=== PATIENT | male | born 1985 | race Caucasian/White ===

== ENCOUNTER → 2019-10-09 | Outpatient (CLI) | payer OTHER ==
[~2019-10-09] MED LIST: ALBUTEROL SULFATE 0.083% NEB 2.5 MG/3 ML AMPUL NEB ONE
--- NOTE | 2019-10-09 15:38 | Pulmonary Function Test ---
Pulmonary Function Test Date of Procedure:: 10/09/19 - Received 10/09/2019 INDICATION:: Dyspnea Referring Provider: Dr. Deal [employer] Machine Operator: Yenny Snell EMBOSSING UNIT OPERATOR - Report Spirometry: Spirometry: pre-FVC: 5.65 L 99% post-FVC: 5.79 L 101% pre-FEV:1 4.23 L 90% post-FEV1: 4.67 L 99% pre-FEV1/FVC %: 75 post-FEV1/FVC%: 81 predicted: 83 [id number]%: 3.42 L 69% [id number]%: 4.68 L 95% Impression: Mild obstructive ventilatory defect most evident in the decreased flow of the FEF 25-75%. Good response to bronchodilator therapy.
== END ==
LOC: RT 07:43
PROVIDERS: ATTEND Internal Medicine
DX: R06.02 Shortness of breath (principal); Z87.891 Personal history of nicotine dependence
CPT/HCPCS: 94060

== ENCOUNTER 2019-10-10 06:47 | Emergency (ER) | payer OTHER ==
[2019-10-10] MEDS ORDERED: OXYCODONE-ACETAMINOPHEN 5-325 MG TABLET PO ONE (06:53)
[2019-10-10 06:54] VITALS: BP 143/86
--- NOTE | 2019-10-10 06:55 | ER Document Report ---
ED General - General Chief Complaint: Foot Injury Stated Complaint: RIGHT FOOT INJURY Time Seen by Provider: 10/10/19 06:53 Notes: 34-year-old male presents with right foot injury after getting up to walk, severe searing lateral foot pain with swelling. He is concerned for fracture dislocation. Will bear weight. No fever no swelling. - Related Data Allergies/Adverse Reactions: No Known Allergies Allergy (Verified 10/10/19 07:19) Past Medical History - General Information source: Patient - Social History Smoking Status: Never Smoker Family History: None Review of Systems - Review of Systems Notes: REVIEW OF SYSTEMS GEN: Denies fever, chills, weight loss ENT: Denies sore throat, nasal discharge, ear pain EYES: Denies blurry vision, eye pain, discharge CV: Denies chest pain, palpitations, edema RESP: Denies cough, shortness of breath, wheezing GI: Denies abdominal pain, nausea, vomiting, diarrhea MSK: Right foot pain SKIN: Denies rash, skin lesions LYMPH: Denies swollen glands/lymph nodes NEURO: Denies headache, focal weakness or numbness, dizziness PSYCH: Denies depression, suicidal or homicidal ideation PHYSICAL EXAMINATION General: No acute distress, well-nourished Head: Atraumatic, normocephalic ENT: Mouth normal, oropharynx moist, no exudates or tonsillar enlargement Eyes: Conjunctiva normal, pupils equal, lids normal Neck: No JVD, supple, no guarding CVS: Normal rate, regular rhythm, no murmurs Resp: No resp distress, equal and normal breath sounds bilaterally GI: Nondistended, soft, no tenderness to palpation, no rebound or guarding Ext: Swelling and tenderness around the fifth metacarpal Back: No CVA or midline TTP Skin: No rash, warm Lymphatic: No lymphadeopathy noted Neuro: Awake, alert. Face symmetric. GCS 15. Physical Exam - Vital signs Vitals: Temp Pulse Resp BP Pulse Ox 98.5 F 65 17 143/86 H 100 10/10/19 06:53 10/10/19 06:53 10/10/19 06:53 10/10/19 06:53 10/10/19 06:53 Course - Vital Signs Vital signs: Temp Pulse Resp BP Pulse Ox 98.5 F 65 17 143/86 H 100 10/10/19 06:53 10/10/19 06:53 10/10/19 06:53 10/10/19 06:53 10/10/19 06:53 Discharge - Discharge Clinical Impression: Nondisplaced fracture of fifth right metatarsal bone Qualifiers: Encounter type: initial encounter Fracture type: closed Qualified Code(s): S9 2.354A - Nondisplaced fracture of fifth metatarsal bone, right foot, initial encounter for closed fracture Condition: Good Disposition: HOME, SELF-CARE Instructions: Foot Fracture ([facility]), Splint Precautions ([facility]) Referrals: PASCUAL VALIENTE MD [ACTIVE STAFF] - Follow up in 3-5 days
--- NOTE | 2019-10-10 07:36 | RADIOLOGY REPORT (SQ) ---
Right ankle radiographs: 10/10/2019 6:35 AM CDT HISTORY: 34-year-old patient with right ankle pain . COMPARISON: None available TECHNIQUE: AP, lateral, mortise views of the right ankle were obtained. FINDINGS: There are no findings to suggest an acute fracture or subluxation within the right ankle. No abnormal soft tissue swelling is seen. No abnormal calcification, periarticular osteopenia, or gross erosions are seen. The joint spaces are preserved. IMPRESSION: There are no findings to suggest an acute fracture or subluxation within the right ankle.
--- NOTE | 2019-10-10 07:37 | RADIOLOGY REPORT (SQ) ---
Right foot radiographs: 10/10/2019 6:35 AM CDT TECHNIQUE: AP, lateral, oblique images of the right foot were obtained. COMPARISON: None available HISTORY: 34-year old patient with right foot pain. FINDINGS: There is an acute fracture through the mid diaphysis of the right fifth metatarsal. This is needed with diffuse overlying soft tissue swelling. No other fractures are seen. IMPRESSION: There is an acute fracture through the mid diaphysis of the right fifth metatarsal.
== END 2019-10-10 07:37 | disposition home or self-care (01) ==
LOC: ER 06:47
DX: S92.354A Nondisplaced fracture of fifth metatarsal bone, right foot, initial encounter for closed fracture (principal); M79.671 Pain in right foot; X50.0XXA Overexertion from strenuous movement or load, initial encounter; Y93.89 Activity, other specified
CPT/HCPCS: 99283